=== PATIENT | male | born 1995 | race Hispanic/Latino ===

== ENCOUNTER → 2022-12-31 | Outpatient (CLI) | payer MEDICARE ==
[~2022-12-31] MED LIST: IOHEXOL-350 50ML VIAL IV ONE
== END | disposition home or self-care (01) ==
LOC: RAH 12:38
PROVIDERS: ATTEND Otolaryngology Plastic Surgery within the Head & Neck
DX: G31.89 Other specified degenerative diseases of nervous system (principal); R90.0 Intracranial space-occupying lesion found on diagnostic imaging of central nervous system
CPT/HCPCS: 70470; Q9967